=== PATIENT | male | born 1950 | race Two or more races ===

== ENCOUNTER 2020-11-27 18:21 | Emergency (ER) | payer OTHER ==
[~2020-11-27] VITALS: Ht 180.3 cm; Wt 104.3 kg
[~2020-11-27 18:21] MED LIST: AMLODIPINE BESYL5 MG; LOSARTAN POTASS50 MG; METOPROLOL SUCC50 MG
[2020-11-27] MEDS ORDERED: DUI500 PO (20:35)
== END 2020-11-27 20:50 | disposition home or self-care (01) ==
LOC: ER 18:21
DX: L03.115 Cellulitis of right lower limb (principal)